=== PATIENT | female | born 1960 | race Two or more races ===

== ENCOUNTER 2019-07-20 17:03 | Emergency (ER) | payer BC, OTHER ==
[~2019-07-20] VITALS: Ht 157.5 cm; Wt 136.1 kg
[~2019-07-20 17:03] MED LIST: ALBUPOW26; ATROVENT; CARI-277; FURO1TAB31; NORCO; POTA99TA13
[2019-07-20 19:00] VITALS: BP 153/62
[2019-07-20] MEDS ORDERED: KETOROLAC TROMETH 60MG/2ML VIAL IM ONE (20:00)
== END 2019-07-20 19:54 | disposition home or self-care (01) ==
LOC: ER 17:03
DX: S83.91XA Sprain of unspecified site of right knee, initial encounter (principal); J44.9 Chronic obstructive pulmonary disease, unspecified; E78.5 Hyperlipidemia, unspecified; I10 Essential (primary) hypertension; Z88.8 Allergy status to other drugs, medicaments and biological substances; X58.XXXA Exposure to other specified factors, initial encounter; Y93.89 Activity, other specified; Y92.89 Other specified places as the place of occurrence of the external cause; Y99.8 Other external cause status
CPT/HCPCS: 73562; 96372; 99283; J1885